=== PATIENT | male | born 1990 | race African-American/Black ===

== ENCOUNTER 2024-03-03 11:16 | Emergency (ER) | payer SELFPAY ==
[~2024-03-03] VITALS: Ht 182.9 cm; Wt 136.0 kg
[2024-03-03 11:24] VITALS: O2SAT 98
[2024-03-03 12:11] LABS: BASOPHILS % 0.6 % (0.0-2.0); DIFFERENTIAL COMMENT 0; EOSINOPHILS % 0.8 % (0.0-5.0); HEMATOCRIT. 48.6 % (42.0-52.0); HEMOGLOBIN. 15.1 g/dL (14.0-18.0); LYMPHOCYTES % 41.1 % (20.0-50.0); MEAN CORPUSCULAR HEMOGLOBIN 27.6 pg (28.0-32.0); MEAN PLATELET VOLUME 10.5 fl (7.4-10.4); MONOCYTES % 7.4 % (2.0-8.0); NEUTROPHILS % 50.1 % (40.0-76.0); PLATELET 229 x1000/uL (130-400); RED BLOOD CELL COUNT 5.46 mill/uL (4.7-6.1); RED CELL DISTRIBUTION WIDTH 16.1 % (11.6-14.6); WHITE BLOOD COUNT 10.8 x1000/uL (4.5-11.0)
[2024-03-03 12:18] LABS: CARBON DIOXIDE 24 mEq/L (21-32); CHLORIDE 111 mEq/L (98-107); POTASSIUM 3.8 mEq/L (3.5-5.1); SODIUM 144 mEq/L (136-145)
[2024-03-03 12:24] LABS: CREATININE 1.2 mg/dL (0.6-1.3); GLUCOSE 124 mg/dL (70-105); UREA NITROGEN BLOOD 14 mg/dL (9-23)
[2024-03-03 12:25] LABS: ACETAMINOPHEN < 2 ug/mL (10-30)
[2024-03-03 12:45] LABS: ETHANOL BLOOD 434 mg/dL (<10)
[2024-03-03] MEDS: SODIUM CHLORIDE 0.9% 1,000 ML IV ONE (12:50)
[2024-03-03 15:34] VITALS: BP 146/67; PULSE 115; RESP 18; TEMP 36.83628; O2SAT 98
== END 2024-03-03 22:30 | disposition left against medical advice (07) ==
LOC: ER 11:26
DX: R41.82 Altered mental status, unspecified (principal); Z53.21 Procedure and treatment not carried out due to patient leaving prior to being seen by health care provider
CPT/HCPCS: 80048; 80307; 80329; 80320; 82962; 85025; 36415; 70450; 93005; J7030; 96360; 96361; 99284; G0480